=== PATIENT | female | born 1960 | race Caucasian/White ===

== ENCOUNTER → 2018-11-07 | Outpatient (CLI) | payer MEDICAID | LOC: FIMAGING 09:09 | PROVIDERS: ATTEND Internal Medicine Gastroenterology | DX: K22.5 Diverticulum of esophagus, acquired (principal); K21.9 Gastro-esophageal reflux disease without esophagitis ==

== ENCOUNTER 2018-12-02 05:42 | Observation (INO) | payer MEDICAID ==
[2018-12-02] MEDS ORDERED: LR 1,000 ML IV ONE (05:52)
[2018-12-02] MEDS ORDERED: CLINDAMYCIN 600 MG/DEXTROSE 50 ML IV ONE (06:40)
[2018-12-02] MEDS ORDERED: AMPICILLIN/SULBACTAM 1.5 GM in NS 50 ML IV ONE (06:51)
--- NOTE | 2018-12-02 06:52 | PDHPUP ---
History & Physical Update H&P update statement: This history and physical update is based on an assessment of the patient which was completed after admission or registration (within 24 hours), but prior to the surgery/procedure. H&P update: H&P reviewed & patient examined, no change in patient's condition since H&P completed
[2018-12-02] MEDS ORDERED: MIDAZOLAM 2 MG/2 ML VIAL IVP ONE (07:00)
--- NOTE | 2018-12-02 07:00 | PDANEPAE ---
ANE Past Medical History - Cardiovascular History Hx Hypertension: No Hx Arrhythmias: No Hx Chest Pain: No Hx Coronary Artery / Peripheral Vascular Disease: No Hx CHF / Valvular Disease: No Hx Palpitations: No - Pulmonary History Hx COPD: No Hx Asthma/Reactive Airway Disease: Yes Hx Recent Upper Respiratory Infection: No Hx Oxygen in Use at Home: No Hx Sleep Apnea: No Sleep Apnea Screening Result - Last Documented: Negative - Neurologic History Hx Cerebrovascular Accident: No Hx Seizures: No Hx Dementia: No - Endocrine History Hx Diabetes: No Endocrine History Comment: HYPOTHYROID HASHIMOTOS - Renal History Hx Renal Disorders: No - Liver History Hx Hepatic Disorders: No Hepatic History Comment: ELEV LIVER ENZYMES - Neurological & Psychiatric Hx Hx Neurological and Psychiatric Disorders: No - Cancer History Hx Cancer: No - Congenital Disorder History Hx Congenital Disorders: No - GI History Hx Gastrointestinal Disorders: No Gastrointestinal History Comment: DIVERTICULUM OF ESOPHAGUS - Other Health History Other Health History: BLOOD CLOT R LEG FOLLOWING EVLT PROCEDURE 2013 - RESOLVED W/ASPIRIN - Surgical History Prior Surgeries: PELVIC RECONSTRUCTION. EVLT R GSV ANE Review of Systems Review of Systems: - Exercise capacity METS (RN): 5 METS ANE Patient History - Allergies Allergies/Adverse Reactions: amoxicillin Allergy (Verified 11/26/18 09:05) Rash - Home Medications Home Medications: Estradiol [Estrace Vaginal (*)] 1 nieves VG Q3D 11/26/18 [Last Taken 11/30/18] Ivermectin [Soolantra] 1 nieves TP HS 11/26/18 [Last Taken 12/01/18 23:00] Levothyroxine [Synthroid 50 mcg (*)] 50 mcg PO DAILY06 11/26/18 [Last Taken 01/14 23:59] RX: Herbals/Supplements -Info Only 1 ea PO DAILY 11/26/18 [Last Taken 11/25/18] metroNIDAZOLE 0.75 % [Metrogel 0.75% Topical Gel (RX)] 1 nieves TP DAILY 11/26/18 [ Last Taken 12/01/18 10:00] - NPO status NPO Since - Liquids (Date): 12/01/18 NPO Since - Liquids (Time): 23:55 NPO Since - Solids (Date): 12/01/18 NPO Since - Solids (Time): 23:55 - Smoking Hx Smoking Status: Former smoker - Family Anes Hx Family Hx Anesthesia Complications: NEG ANE Labs/Vital Signs - Vital Signs Blood Pressure: 98/63 Heart Rate: 78 Respiratory Rate: 20 O2 Sat (%): 96 Height: 157.48 cm Weight: 58.06 kg ANE Physical Exam - Airway Neck exam: FROM Mallampati Score: Class 1 Mouth exam: normal dental/mouth exam - Pulmonary Pulmonary: clear to auscultation - Cardiovascular Cardiovascular: regular rate and rhythym - ASA Status ASA Status: II ANE Anesthesia Plan Anesthesia Plan: general endotracheal anesthesia
[2018-12-02] MEDS ORDERED: PROPOFOL 200 MG/20 ML VIAL ONE (07:02)
[2018-12-02] MEDS ORDERED: REMIFENTANIL HCL 1 MG VIAL ONE (07:02)
[2018-12-02] MEDS ORDERED: fentaNYL 100 MCG/2 ML INJ ONE (07:04)
[2018-12-02] MEDS ORDERED: DEXAMETHASONE 4 MG/ML VIAL ONE ×3 (07:09)
[2018-12-02] MEDS ORDERED: SUCCINYLCHOLINE CHLORIDE 200 MG/10 ML SYR IVP ONE (07:09)
[2018-12-02] MEDS ORDERED: KETOROLAC 30 MG/1 ML SDV ONE (07:30)
[2018-12-02] MEDS ORDERED: RANITIDINE 50 MG/2 ML VIAL ONE (07:30)
[2018-12-02] MEDS ORDERED: ePHEDrine SULFATE 25 MG/5 ML SYR ONE (07:30)
[2018-12-02] MEDS ORDERED: ROCURONIUM 50 MG/5 ML VIAL ONE (07:34)
[2018-12-02] MEDS ORDERED: ONDANSETRON 4 MG/2 ML VIAL ONE (08:53)
[2018-12-02] MEDS ORDERED: HYDROCODONE/APAP 5/325 TAB PO PRN (09:06)
[2018-12-02] MEDS ORDERED: DIAZEPAM 10 MG/2 ML SYR IVP PRN (09:06)
[2018-12-02] MEDS ORDERED: METOCLOPRAMIDE 10 MG/2 ML VIAL IVP PRN ×2 (09:06→09:27)
[2018-12-02] MEDS ORDERED: fentaNYL 100 MCG/2 ML INJ IVP PRN (09:06)
[2018-12-02] MEDS ORDERED: ACETAMINOPHEN 500 MG TAB PO PRN (09:06)
[2018-12-02] MEDS ORDERED: MEPERIDINE 25 MG/0.5 ML AMP IVP PRN (09:06)
[2018-12-02] MEDS ORDERED: PROMETHAZINE HCL 25 MG/ML INJ IVP PRN (09:06)
[2018-12-02] MEDS ORDERED: oxyCODONE IR 5 MG TAB PO PRN (09:06)
[2018-12-02] MEDS ORDERED: LR 500 ML IV PRN (09:06)
[2018-12-02] MEDS ORDERED: NALOXONE HCL 0.4 MG/ML INJ IVP PRN (09:06)
[2018-12-02] MEDS ORDERED: HYDROmorphONE/DILAUDID 1 MG/ML INJ IVP PRN ×2 (09:06→09:27)
[2018-12-02] MEDS ORDERED: ALBUTEROL 3 ML DEYVIAL IH PRN (09:06)
[2018-12-02] MEDS ORDERED: ONDANSETRON 4 MG/2 ML VIAL IVP PRN ×2 (09:06→09:27)
[2018-12-02] MEDS ORDERED: DEXAMETHASONE 4 MG/ML VIAL IVP PRN (09:06)
[2018-12-02] MEDS ORDERED: HYDROCOD/APAP 7.5/325 IN 15ML UDCUP PO PRN (09:27)
[2018-12-02] MEDS ORDERED: TEMAZEPAM 15 MG CAP PO PRN (09:27)
--- NOTE | 2018-12-02 09:35 | POSTOPPROG ---
Post Op Note Date of Operation: 12/02/18 Surgeon: Siddhartha Michael Teacher Of The Emotionally Disturbed: Dionna Julio PA-C Anesthesiologist: Talya Dillon Anesthesia: GET(General Endotracheal) Pre-op Diagnosis: Zenker diverticulum Post-op Diagnosis: same Procedure: Endoscopic Zenker diverticular repair Findings: Large diverticulum Inf/Abcess present in the surg proc area at time of surgery?: No EBL: Minimal Complications: no immediate
--- NOTE | 2018-12-02 10:49 | POSTANESTH ---
Post Anesthetic Evaluation Cardiovascular Status: Normal, Stable Respiratory Status: Normal, Stable Level of Consciousness/Mental Status: Can Participate in Eval Pain Control: Adequate, Prn Tx Ordered Nausea/Vomiting Control: Adequate, Prn Tx Ordered Complications Possibly Related to Anesthesia: None Noted
--- NOTE | 2018-12-02 11:21 | GOP ---
[f rep st] OPERATIVE REPORT DATE OF OPERATION: 12/02/2018 SURGEON: Siddhartha Michael MD FIELD TECHNICAL ASSISTANT: Dionna Julio PA-C . ANESTHESIA: General, with Dr. Dillon. PREOPERATIVE DIAGNOSIS: Zenker's diverticulum. POSTOPERATIVE DIAGNOSIS: Same. PROCEDURE PERFORMED: Endoscopic Zenker's diverticulotomy with EGD FINDINGS: Large posterior pharyngeal diverticulum. INDICATIONS: 58-year-old female with a large symptomatic Zenker's diverticulum. She is undergoing surgical repair at this time. Risks and benefits were explained including bleeding, infection, recurrence, esophageal perforation, open conversion, dental injury, as well as others. All questions were answered. She desires to proceed. server assistant is standard, necessary, and customary for the safe performance of this procedure. DESCRIPTION OF PROCEDURE: General anesthesia was induced. A tooth guard was applied to the upper dentition. A gastroscope was inserted carefully down via the true esophageal lumen into the stomach. A Jagwire was left in place for further identification purposes. The scope was slowly withdrawn. The Weerda diverticuloscope was inserted over the Jagwire down to the large posterior esophageal diverticula. Diverticular orifice was multiple centimeters greater than the esophageal lumen. The scope was tediously positioned. Scope position was a challenge by the patient's small mouth. Once satisfactory exposure was obtained, the 5 mm LigaSure device was used to divide the cricopharyngeus muscle and separate the republican wall. This was done with multiple firings, including coagulation laterally and cutting centrally. This was taken within a few millimeters of the distal-most aspect of the diverticula. No perforation or breach of the esophageal mucosa was noted at any point. With palpation, minimal residual distal cricopharyngeus muscle was able to be probed. Satisfactory hemostasis was assured. The scope was slowly withdrawn, showing an excellent common channel between the diverticula and the esophageal lumen. The patient was extubated in the operating room and taken to Recovery uneventfully. /[id number]/MODL MTDD
[2018-12-02] MEDS ORDERED: KETOROLAC 15 MG/1 ML SDV IVP SCH ×2 (12:00→13:30)
[2018-12-02 14:10] VITALS: BP 111/80
--- NOTE | 2018-12-02 19:12 | GDS ---
[f rep st] DISCHARGE SUMMARY 58-year-old female who underwent an endoscopic Zenker's diverticulotomy on November. She had an uneventful postoperative course. Her pain was well managed prior to her discharge. She was discharged to home in good condition on same day of surgery. She was tolerating a clear fluid diet well. She was provided a prescription for tramadol prior to her discharge. She may resume her home medications and supplements. She will follow up in the office with Dr. Michael in 2 weeks. She was instructed to advance her diet slowly as tolerated. She was advised to call with fevers, chills, pain not controlled with medication, dysphagia, or other concerns. All patient and her significant other's questions were addressed. /[id number]/MODL MTDD
[2018-12-02] MEDS ORDERED: Ivermectin [Soolantra] 1 APP TP SCH (21:00)
[2018-12-03] MEDS ORDERED: METRONIDAZOLE 0.75% VG SCH (09:00)
[2018-12-05] MEDS ORDERED: ESTRADIOL 42.5 GM CRTUBE VG SCH (08:00)
== END 2018-12-02 16:58 | disposition home or self-care (01) ==
LOC: F3N 05:42 → F3E 10:40
PROVIDERS: ADMIT Surgery; ATTEND Surgery
PROC: 0DQ58ZZ Repair Esophagus, Via Natural or Artificial Opening Endoscopic (ICD-10-PCS; principal; 2018-12-02 07:15)
DX: K22.5 Diverticulum of esophagus, acquired (principal); K21.9 Gastro-esophageal reflux disease without esophagitis; E03.9 Hypothyroidism, unspecified; J45.909 Unspecified asthma, uncomplicated; I83.813 Varicose veins of bilateral lower extremities with pain; Z82.49 Family history of ischemic heart disease and other diseases of the circulatory system; Z88.0 Allergy status to penicillin
CPT/HCPCS: 43499; C1769; G0378; J0295; J0330; J1100; J1885; J2250; J2405; J2704; J2780; J3010

== ENCOUNTER → 2019-01-05 | Outpatient (CLI) | payer MEDICAID | LOC: FIMAGING 09:25 ==